=== PATIENT | female | born 1970 | race Caucasian/White ===

== ENCOUNTER → 2017-05-21 | Outpatient (CLI) | payer OTHER ==
[~2017-05-21] MED LIST: CELE-1 PO; CLO10 PO; CYCL-277 PO; CYCL10TA29 PO; DULO30CA35 PO; DULO60CA7 PO; FLU150 PO; FLUC150T40 PO; IBUP-1671 PO; NITR-105 PO; ORP100 PO; PIMT TP; TRAM-420 PO; TRIA15CR40 TP
== END ==
LOC: LAB 09:46
PROVIDERS: ATTEND Nurse Practitioner Family
DX: N91.2 Amenorrhea, unspecified (principal); D35.2 Benign neoplasm of pituitary gland
CPT/HCPCS: 36415; 82671; 83001; 84146; 84443

== ENCOUNTER → 2017-08-03 | Outpatient (REF) ==
[2017-08-03 08:55] LABS: LDL CHOLESTEROL 130 mg/dl
== END ==
DX: Z02.9 Encounter for administrative examinations, unspecified (principal)

== ENCOUNTER → 2017-08-03 | Outpatient (CLI) | payer OTHER | LOC: LAB 08:17 | PROVIDERS: ATTEND Internal Medicine Endocrinology, Diabetes & Metabolism | DX: E22.1 Hyperprolactinemia (principal) | CPT/HCPCS: 36415; 83001; 83002; 84146 ==

== ENCOUNTER → 2017-10-24 | Outpatient (CLI) | payer OTHER ==
[~2017-10-24] MED LIST changes: +IBUP800T37 PO; +PANT40TA65 PO
== END ==
LOC: LAB 08:19
PROVIDERS: ATTEND Internal Medicine
DX: E22.1 Hyperprolactinemia (principal)
CPT/HCPCS: 36415; 83001; 83002; 84146

== ENCOUNTER → 2017-12-04 | Outpatient (CLI) | payer OTHER | LOC: LAB 07:56 | PROVIDERS: ATTEND Internal Medicine | DX: E22.1 Hyperprolactinemia (principal) | CPT/HCPCS: 36415; 84146 ==

== ENCOUNTER → 2018-05-28 | Outpatient (CLI) | payer OTHER ==
[~2018-05-28] MED LIST changes: +CABE0.5T7 PO; +METH4TAB66 PO
== END ==
LOC: LAB 09:50
PROVIDERS: ATTEND Internal Medicine
DX: B37.9 Candidiasis, unspecified (principal)
CPT/HCPCS: 87252

== ENCOUNTER → 2018-07-31 | Outpatient (CLI) | payer OTHER ==
[~2018-07-31] MED LIST changes: +ESOM20CA7 PO; +IOPAMIDOL 76% 150 ML INFUS BTL 150 ML ONE; +MEDR10TA65 PO
--- NOTE | 2018-07-31 13:27 | RADIOLOGY IMAGING REPORT ---
FACILITY: [facility] - [place] PATIENT NAME: Radha Hill : 1970 MR: [id number] V: [id number] EXAM DATE: ORDERING PHYSICIAN: ROSINA TRUONG TECHNOLOGIST: Location: [facility] [place] Patient: Radha Hill : 1970 Visit/Account:[id number] Date of Sevice: 07/31/2018 CT ABDOMEN PELVIS W/ CON HISTORY: PELVIC MASS ON US TECHNIQUE: Following administration of IV contrast contiguous axial images acquired through the abdom en/pelvis. Coronal and sagittal reformatting also performed. One of the following dose optimization techniques was utilized in the performance of this exam: Automated exposure control; adjustment of t he mA and/or kV according to the patient's size; or use of an iterative reconstruction technique. S pecific details can be referenced in the facility's radiology CT exam operational policy. CONTRAST: 75 mL Isovue-370 COMPARISON: The referenced ultrasound was not performed at this institution and is not available. FINDINGS: Visualized lung bases: Negative. Hepatobiliary: Negative. Spleen: Negative. Adrenals: Negative. Pancreas: Negative. Kidneys ureters or bladder: Negative. Genitalia: The uterus is enlarged measuring 11.2 cm craniocaudad by 7.4 cm transverse by 7.0 cm AP a nd contains multiple heterogenous low density myometrial masses. Largest located in the lower uterin e segment measures 5 cm diameter and there is also a 4.2 cm diameter partially exophytic mass at the fundus. Multiple smaller lesions are seen. While technically nonspecific statistically these almost certainly represent a leiomyomas. The ovaries are normal. GI: Negative. Vessels/spaces/nodes: Negative. Bones/soft tissues: Negative. Additional findings: None pertinent. IMPRESSION: Enlarged leiomyomatous uterus. Report Dictated By: Bautista Mccarthy MD at 07/31/2018 1:16 PM Report E-Signed By: Bautista Mccarthy MD at 07/31/2018 1:23 PM WSN:[id number]
== END ==
LOC: CT 00:52
PROVIDERS: ATTEND Student in an Organized Health Care Education/Training Program
DX: D39.0 Neoplasm of uncertain behavior of uterus (principal)
CPT/HCPCS: 74177; Q9967

== ENCOUNTER → 2018-08-09 | Outpatient (REF) ==
[~2018-08-09] MED LIST changes: -IOPAMIDOL 76% 150 ML INFUS BTL 150 ML ONE
[2018-08-09 08:45] LABS: LDL CHOLESTEROL 138 mg/dl
== END ==
DX: Z02.9 Encounter for administrative examinations, unspecified (principal)

== ENCOUNTER → 2018-08-09 | Outpatient (CLI) | payer OTHER | LOC: LAB 07:58 | PROVIDERS: ATTEND Nurse Practitioner Family | DX: B37.9 Candidiasis, unspecified (principal); D44.3 Neoplasm of uncertain behavior of pituitary gland | CPT/HCPCS: 83036; 84146 ==

== ENCOUNTER 2018-08-21 01:11 | Observation (INO) | payer OTHER ==
[2018-08-21] VITALS (16 sets, daily range): BP systolic 113–141; BP diastolic 62–85
[~2018-08-21] VITALS: Ht 167.6 cm; Wt 70.8 kg
[2018-08-21] MEDS ORDERED: FAMOTIDINE 20 MG TAB PO ONE (06:30)
[2018-08-21] MEDS ORDERED: ceFAZolin(*) 2GM/D5W 50ML 50 ML IVPB ONE (06:30)
[2018-08-21] MEDS ORDERED: PHENAZOPYRIDINE 200 MG TAB PO ONE (06:30)
[2018-08-21] MEDS ORDERED: MIDAZOLAM 2 MG/2 ML VIAL IVP PRN (06:30)
[2018-08-21] MEDS ORDERED: LIDOCAINE/SOD BICARB 8.4% SYR ID ONE (06:30)
[2018-08-21] MEDS ORDERED: NORMOSOL R SOLN(*) 1000 ML BAG 1,000 ML IV PRN (06:30)
[2018-08-21 06:50] LABS: PLATELET COUNT, AUTOMATED 244 K/uL (150-450)
[2018-08-21] MEDS ORDERED: BUPIV/EPI 0.25% 1:200,000 50ML INFIL ONE (07:05)
[2018-08-21] MEDS ORDERED: PROPOFOL EMUL 10MG/ML 20 ML VL ONE (07:22)
[2018-08-21] MEDS ORDERED: LIDOCAINE 2% IV 100 MG/5ML SYR ONE (07:22)
[2018-08-21] MEDS ORDERED: KETAMINE HCL 500 MG/5 ML VIAL ONE (07:22)
[2018-08-21] MEDS ORDERED: ROCURONIUM BROM 10 MG/ML 5 ML ONE (07:22)
[2018-08-21] MEDS ORDERED: DEXAMETHASONE SOD PHOS 10MG/ML ONE (07:22)
[2018-08-21] MEDS ORDERED: DLR(*) 1000 ML BAG 1,000 ML IV PRN (09:17)
--- NOTE | 2018-08-21 09:17 | Post Operative Note ---
Operative Note - [facility] Operative Day Date: Aug 21, 2018 Time: 09:15 Physicians Surgeon: Maik Sound Engineering Technician: Andrea Anesthesia: Kristen WOODARD Diagnosis Pre-Op Diagnosis: Abnormal uterine bleeding Fibroid uterus Post-Op Diagnosis: Same Procedure Findings: Globular uterus with multiple fibroids Procedure(s): CRISTIAN, BS, dx cysto Specimen Removed:(Maybe N/A): Uterus (275g) , bilateral tubes Fluids Fluids: IVF: 1500 Estimated Blood Loss: Minimal NICOLE POON MD Aug 21, 2018 09:16
[2018-08-21] MEDS ORDERED: HYDROmorphone HCL 2 MG/ML SDV IVP PRN (09:20)
[2018-08-21] MEDS ORDERED: ACETAMINOPHEN 325 MG TAB PO PRN (09:20)
[2018-08-21] MEDS ORDERED: METOCLOPRAMIDE 10 MG/2 ML SDV IV PRN (09:20)
[2018-08-21] MEDS ORDERED: MAGNESIUM HYDROXIDE* 30ML UDCP PO PRN (09:20)
[2018-08-21] MEDS ORDERED: fentaNYL CITR 100 MCG/2 ML AMP ONE (09:30)
[2018-08-21] MEDS ORDERED: ACETAMINOPHEN(*)1000 MG/100 ML 100 ML IVPB ONE (10:36)
--- NOTE | 2018-08-21 10:48 | OPERATIVE REPORT 1 ---
EVENT DATE: August 21, 2018 SURGEON: Eula Pleitez MD ANESTHESIOLOGIST: Mike Peterson MD ANESTHESIA: General endotracheal tube. RETAIL ASSISTANT STORE MANAGER: Manny Mendez DO PREOPERATIVE DIAGNOSES 1. Abnormal uterine bleeding. 2. Fibroid uterus. 3. Vaginal polyp. POSTOPERATIVE DIAGNOSIS 1. Abnormal uterine bleeding. 2. Fibroid uterus. 3. Vaginal polyp. PROCEDURES PERFORMED 1. Robotic-assisted total laparoscopic hysterectomy with bilateral salpingectomy. 2. Diagnostic cystoscopy. 3. Vaginal polyp excision. FINDINGS Enlarged globular uterus with multiple fibroids, weighing 275 grams. SPECIMENS REMOVED Uterus, weighing 275 grams with bilateral fallopian tubes. IV FLUIDS 1500 cc. ESTIMATED BLOOD LOSS Minimal. INDICATIONS FOR PROCEDURE This patient is a 48-year old, G2, P2 who presented to clinic with a longstanding history of irregular and heavy bleeding. This was particularly worse over the last five months. She also developed recurrent heavy bleeding during and after intercourse. She had a full evaluation with a benign EMB on July 23, 2018. She then had an ultrasound performed, which revealed a 4.3 x 4.4 x 3.[address] scan was performed, which indicated she may have an additional 5 cm myoma near the lower uterine segment. After discussing all of her options, she elected to proceed with a hysterectomy. The patient had also been diagnosed with a vaginal polyp, which was scheduled to be removed intraoperatively. Please see history and physical for full details. She was admitted for the above-said procedure. DESCRIPTION OF PROCEDURE The patient was properly identified and taken to the operating room. She was placed under general endotracheal anesthesia, placed in the dorsal lithotomy position and prepped and draped in usual fashion for a laparoscopic-assisted vaginal procedure. The patient received Ancef preoperatively for prophylactic antibiotics. Her SCDs were on and functioning. A bimanual exam was performed, which revealed enlarged anteverted uterus. A speculum was placed to visualize the cervix, which was multiparous and without lesion. The vaginal polyp was noted to be in the posterior superior and posterior aspect of the vagina. This was grasped with an Allis clamp and placed on tension. The polyp was then removed using scissors and sent to pathology. The bed of where the polyp was removed was made hemostatic with a [id number] 2-0 Vicryl suture. Once again, attention was turned to the cervix, where the anterior lip was grasped with an Allis clamp. The cervix was serially dilated to 6 mm using Hegar dilators. A large VCare uterine manipulator was then requested and assembled. A suture was then placed through the anterior lip of the cervix, through the os and then from the os to the posterior lip of the cervix. This was then passed through the VCare and the VCare was placed into the uterine fundus. The tip was insufflated. This remained in place. The colpotomy ring was advanced to be flush against the cervix and vaginal mucosa. This was then tied down with the 0 Vicryl suture. The pneumo-occluder was then advanced into the vagina and secured. A Rivera catheter was then placed to drain the bladder. The patient was then placed in the supine position and attention was turned to the laparoscopic portion of the procedure. The supraumbilical region was infiltrated with 0.25% Marcaine with epinephrine. A Veress needle was tested and proved to be functioning. An 8 mm incision was made supraumbilically. The Veress needle was then passed through this incision into the abdominal cavity using the double click test. Pneumoperitoneum was then achieved. The 8 mm trocar was introduced through the supraumbilical midline incision under direct visualization using a Paion AG laparoscope. Once entry into the abdominal cavity was confirmed, the remaining locations of the trocars were planned with two on the right and two on the left. On the patient's left side, an 8 mm incision was made with the most lateral incision and an 8 mm incision in the more medial. These two ports were introduced under direct visualization. The two 8 mm incisions were also made on the patient's right side followed by insertion of the trocars under direct visualization. At this time, the patient was placed in Trendelenburg position and the da Reba robotic system was prepared for docking. It was then brought in and aligned. The endoscope part was docked. The endoscope was then introduced and targeting was performed on the uterus. The remaining arms were then docked without difficulty. The fenestrated bipolar graspers, ProGrasp and monopolar scissors were then advanced under direct visualization to the pelvis and energy was connected. At this time, I was able to break sterile attire and sit at the console to initiate the hysterectomy. Examination of the pelvis revealed a globular uterus, which was enlarged, with multiple myomas. There was clearly one large posterior fundal myoma as well as a more pedunculated, approximately 2 cm, one anteriorly. However, the entire uterine body was quite globular, likely with multiple myomas that were unable to be identified clearly. The bilateral fallopian tubes had been with a bilateral tubal ligation in the past but appeared within normal limits. Bilateral ovaries also appeared within normal limits. There were no other adhesions or concerns within the abdomen. The patient's right fallopian tube was placed on gentle traction and the mesosalpinx was able to be transected using electrocautery. Once the entire mesosalpinx was able to be , the fallopian tube was delivered through the 11 mm trocar. The same procedure was performed on the left side to remove the fallopian tube by cauterizing the mesosalpinx and cutting it. Once both fallopian tubes were delivered through the trocar, attention was then turned to the hysterectomy. The patient's left utero-ovarian ligament was cauterized and transected followed by the round ligament, which allowed opening of the broad ligament. Once the broad ligament was opened, the anterior leaflet was brought down across the midline above the colpotomy ring in order to separate the vesicouterine peritoneum. The posterior peritoneum was then dissected further off the uterus on the left side down the cervix. The uterine vessels were then identified, cauterized and transected in order to allow the colpotomy to be performed. Attention was then turned to the patient's right side, where the right utero-ovarian ligament was cauterized and transected. The round ligament was then cauterized and transected, which allowed opening of the broad ligament. The anterior leaflet was brought down to the midline where the prior uterovesical peritoneum on the other side had been dissected. The posterior leaflet was then also brought down to the level of the colpotomy ring. The uterine vessels were then visualized and cauterized. These were taken down with monopolar scissors to the level of where the colpotomy would need to be performed. At this time, the bladder flap was further delineated and brought down without difficulty to a safe area in order to allow for closure of the vaginal cuff later. The colpotomy was then initiated anteriorly with identification of the colpotomy ring. The colpotomy was then continued in a circumferential fashion until the entire colpotomy was completed. The uterus was then delivered into the vagina and left in the vagina to maintain pneumoperitoneum. The vaginal cuff was copiously irrigated and noted to be hemostatic. An 0 Vicryl sutures was then utilized in a figure-of-8 manner to reapproximate the tissue on the left corner. A V-Loc suture was then initiated on the right side to reapproximate the right corner following to the left with an unlocked suture. Once this was completely closed, the suture was followed backwards with two additional sutures towards the right. Once this was completed, copious irrigation was again performed, revealing adequate hemostasis. Using the Yon-Bhatia device, the fascia of the first assistant port was closed using an 0 Vicryl with robotic assistance. All the robotic arms were undocked and the instruments were removed. Pneumoperitoneum was relieved and the 11 mm fascia was tied down. All five skin incisions were reapproximated using 4-0 Monocryl and closed with Dermabond. The Rivera catheter was removed from the bladder. A cystoscope was assembled and introduced through the urethra and into the bladder under direct visualization. The entire bladder was evaluated and noted to be normal without any lesions or sutures. Bilateral ureteral jets were noted with yellow urine. The cystoscope was then removed and the Rivera catheter was replaced. The patient tolerated this procedure well and recovered in the Post-Anesthesia Care Unit. All sponge, needle and instrument counts were correct at the end of this procedure. DIONY
[2018-08-21] MEDS ORDERED: KETOROLAC 30 MG/ML VIAL IVP SCH (12:00)
--- NOTE | 2018-08-21 14:11 | OB/GYN Progress Note ---
OB Subjective Progress Notes Subjective Pt is doing well. She feels "gas bubbles" in her abdomen. She has not taken any oral medication, only Toradol IV for pain. She is not yet ambulating, quevedo still in. No CP/SOB/dizziness. OB Objective Physical Exam Vital Signs Date Time Temp Pulse Resp B/P (MAP) Pulse Ox O2 Delivery O2 Flow Rate FiO2 08/21/18 12:25 86 Room Air 08/21/18 11:30 68 12 08/21/18 11:30 98.2 116/70 (85) General Appearance: Alert/Awake/No Acute Distress Neurological: No Gross deficits Eyes: Normal Extraocular Movement & Vison Cardiovascular: Normal Rhythm & Peripheral Pulses, Regular Rate and Rhythm Respiratory: No Respiratory Distress, Clear to Auscultation Abdomen: Soft, Non-Tender, Non-Distended Incision: Clean, Dry, Intact, Dermabond Extremities: No Cyanosis,Clubbing or Edema Integumentary: Skin Intact without Lesions or Rash Psychological: Alert & Oriented X3, Appropriate Mood & Affect Result Diagram: 08/21/18 0642 Assessment and Plan Problems: (1) History of robot-assisted laparoscopic hysterectomy Assessment & Plan: POD#0 s/p CRISTIAN BS, dx cysto. She is doing well. Will d/c one IV, change to Lortab and advance activity. NICOLE POON MD Aug 21, 2018 14:11
[2018-08-21] MEDS ORDERED: LOR5/325 PO (14:13)
[2018-08-21] MEDS ORDERED: IBUP800T37 PO (14:13)
[2018-08-21] MEDS: APAP/HYDROCODONE 325/5 TAB PO PRN ×4 (14:39→23:37)
[2018-08-21] MEDS: KETOROLAC 30 MG/ML VIAL IVP SCH ×2 (14:40→20:51)
[2018-08-21] MEDS: ONDANSETRON 4 MG/2 ML VIAL IV PRN ×2 (17:17→23:37)
[2018-08-21] MEDS: SIMETHICONE 80 MG CHEW CHEW PRN (19:20)
[2018-08-21] MEDS: FAMOTIDINE 20 MG TAB PO SCH (20:51)
[2018-08-21] MEDS: DOCUSATE CALCIUM 240 MG CAP PO SCH (20:51)
[2018-08-22] MEDS ORDERED: IBUPROFEN 800 MG TAB PO PRN (03:00)
[2018-08-22 03:35] VITALS: BP 110/61
[2018-08-22] MEDS: APAP/HYDROCODONE 325/5 TAB PO PRN ×2 (03:43→08:23)
[2018-08-22] MEDS: SIMETHICONE 80 MG CHEW CHEW PRN ×2 (03:50→08:23)
[2018-08-22 05:48] LABS: PLATELET COUNT, AUTOMATED 210 K/uL (150-450)
--- NOTE | 2018-08-22 08:10 | OB/GYN Progress Note ---
OB Subjective Progress Notes Subjective Doing well. Pain controlled with oral medications. Tolerating regular diet. Ambulating. Voiding. Minimal vaginal bleeding. No chest pain, shortness of breath or dizziness. OB Objective Physical Exam Vital Signs Date Time Temp Pulse Resp B/P (MAP) Pulse Ox O2 Delivery O2 Flow Rate FiO2 08/22/18 03:35 98.4 58 16 110/61 (77) 94 Nasal Cannula 0.5 Intake and Output 08/22/18 07:00 Intake Total 3950 ml Output Total 2575 ml Balance 1375 ml Intake Oral 600 ml IV Total 3350 ml Output Urine Total 2575 ml General Appearance: Alert/Awake/No Acute Distress Neurological: No Gross deficits Eyes: Normal Extraocular Movement & Vison Cardiovascular: Normal Rhythm & Peripheral Pulses, Regular Rate and Rhythm Respiratory: No Respiratory Distress, Clear to Auscultation Abdomen: Soft, Non-Tender, Non-Distended Incision: Clean, Dry, Intact, Dermabond Extremities: No Cyanosis,Clubbing or Edema Integumentary: Skin Intact without Lesions or Rash Psychological: Alert & Oriented X3, Appropriate Mood & Affect Result Diagram: 08/22/18 0537 Assessment and Plan Problems: (1) History of robot-assisted laparoscopic hysterectomy Assessment & Plan: POD#1 s/p CRISTIAN, BS, dx cysto. Meeting milestones. Desires discharge to home today. Discussed routine postoperative expectations. Questions answered. Follow up in clinic in 1-2wks for postop check. NICOLE POON MD Aug 22, 2018 08:10
[2018-08-22] MEDS ORDERED: FAMO20TA PO (08:12)
[2018-08-22] MEDS ORDERED: ONDA4TAB9 PO (08:12)
[2018-08-22] MEDS ORDERED: DOCU-416 PO (08:12)
--- NOTE | 2018-08-22 08:13 | OB/GYN Discharge Summary ---
Discharge Summary Reason for Hosp/Final Diag: (1) History of robot-assisted laparoscopic hysterectomy Hospital Course & Plan: POD#1 s/p CRISTIAN, BS, dx cysto. Meeting milestones. Desires discharge to home today. Discussed routine postoperative expectations. Questions answered. Follow up in clinic in 1-2wks for postop check. Lates Vital Signs Vital Signs Date Time Temp Pulse Resp B/P (MAP) Pulse Ox O2 Delivery O2 Flow Rate FiO2 08/22/18 03:35 98.4 58 16 110/61 (77) 94 Nasal Cannula 0.5 Weight (Pounds): 156 Result Diagram: 08/22/18 0537 Condition: Improved Discharge: Home, Self Custodial Meds Active Scripts Hydrocodone Bit/Acetaminophen (HYDROCODON-ACETAMINOPHEN 5-325) 1 Each Tablet, 1 EACH PO Q4-6H PRN for pain, #20 TAB 0 Refills Prov:NICOLE POON MD 08/21/18 Fluconazole (DIFLUCAN) 150 Mg Tablet, 1 TAB PO Q3D, #28 TAB 0 Refills Take one pill every 3 days for three doses then weekly X 6 months. Prov:ALEXIROSINA 07/23/18 Celecoxib (CELEBREX) 200 Mg Capsule, 200 MG PO QDAY PRN for pain, #30 CAPSULE 3 Refills Prov:CASS GARCIA MD 02/01/17 Cyclobenzaprine Hcl (CYCLOBENZAPRINE HCL) 5 Mg Tablet, 5 MG PO BID PRN for pain, #30 TAB 3 Refills Prov:CASS GARCIA MD 02/01/17 Follow up Referrals: EMPLOYEE BENEFITS SPECIALIST - In Two Weeks @ [facility] [place] with NICOLE POON MD Discharge Diet: As Tolerates Discharge Activity: No Heavy Lifting > 10lb, Pelvic Rest NICOLE POON MD Aug 22, 2018 08:13
[2018-08-22] MEDS: FAMOTIDINE 20 MG TAB PO SCH (08:23)
[2018-08-22] MEDS: DOCUSATE CALCIUM 240 MG CAP PO SCH (08:23)
[2018-08-22] MEDS: ONDANSETRON 4 MG/2 ML VIAL IV PRN (08:23)
[2018-08-22 08:45] VITALS: BP 119/68
[2018-08-22] MEDS ORDERED: INFLUENZA VIRUS VAC 0.5ML SYR IM ONLY ONE (09:00)
== END 2018-08-22 09:10 | disposition home or self-care (01) ==
LOC: OR 01:11 → PED 10:30
PROVIDERS: ADMIT Obstetrics & Gynecology; ATTEND Obstetrics & Gynecology
DX: N93.9 Abnormal uterine and vaginal bleeding, unspecified (principal); D25.9 Leiomyoma of uterus, unspecified; N84.2 Polyp of vagina
CPT/HCPCS: 36415; 58573; 84703; 85025; 88305; 88307; G0378; J0131; J1100; J1885; J2001; J2250; J2405; J2704; J3010; S2900; J0690